=== PATIENT | female | born 1985 | race Caucasian/White ===

== ENCOUNTER 2016-11-29 21:01 | Emergency (ER) | payer OTHER ==
[2016-11-29 21:09] VITALS: BP 140/93; PULSE 86; TEMP 98.3; BMI 27.4
--- NOTE | 2016-11-29 21:29 | PDOC ---
[id number] SHOULDER INJURY Time Seen by Provider: 11/29/16 21:22 Past History - Past Medical History Allergies/Adverse Reactions: Allergies Allergy/AdvReac Type Severity Reaction Status Date / Time No Known Allergies Allergy Verified 11/29/16 21:09 Home Medications: Ambulatory Orders NK [No Known Home Medication] 11/29/16 Other medical history: denies - Psycho/Social/Smoking Cessation Hx Suicidal Ideation: No Smoking History: Never smoked *Physical Exam - Vital Signs Last Vital Signs Temp Pulse Resp BP Pulse Ox 98.3 F 86 18 140/93 99 11/29/16 21:06 11/29/16 21:06 11/29/16 21:06 11/29/16 21:06 11/29/16 21:06 *DC/Admit/Observation/Transfer Diagnosis at time of Disposition: Shoulder strain - Discharge Dispostion Disposition: HOME Condition at time of disposition: Good - Referrals Referrals: Santi Peña MD [Staff Physician] - - Patient Instructions Additional Instructions: apply ice every 2hrs for 20minutes for the next 2 days while awake take motrin 600-800mg every 6hrs for pain as needed use the sling while awake remove to sleep and abthe follow with the orthopedist for follow up next week Return to ER if any worsening symptoms - Post Discharge Activity Work/School Note: Back to Work
[2016-11-29] MEDS ORDERED: IBUPROFEN 600 MG TABLET (FP) PO ONE (21:38)
--- NOTE | 2016-11-29 21:47 | PDOC ---
History of Present Illness - General Chief Complaint: Injury Stated Complaint: SHOULDER INJURY Time Seen by Provider: 11/29/16 21:22 History Source: Patient Exam Limitations: No Limitations - History of Present Illness Initial Comments: 11/29/16 21:38 31 yr female was pulling an obese pt up in bed when she felt pain to her right shoulder. Pt felt "hot then tingling and numbness to arm" Pt did not fall. Pt has no previous injury. denies . Pt states the pain has improved. Occurred: reports: just prior to arrival Severity: reports: moderate Upper Extremity Pain Location: right: shoulder Method of Injury: reports: other (pulling pt up in the bed ) Extremity Pain Location - Extremity Pain Location Extremity Pain Locations: right: other (shoulder) Past History - Past Medical History Allergies/Adverse Reactions: Allergies Allergy/AdvReac Type Severity Reaction Status Date / Time No Known Allergies Allergy Verified 11/29/16 21:09 Home Medications: Ambulatory Orders NK [No Known Home Medication] 11/29/16 Other medical history: denies - Psycho/Social/Smoking Cessation Hx Suicidal Ideation: No Smoking History: Never smoked Review of Systems - Review of Systems Able to Perform ROS?: Yes Is the patient limited [place] proficient: No Constitutional: No: Symptoms Reported HEENTM: No: Symptoms Reported Respiratory: No: Symptoms reported Cardiac (ROS): No: Symptoms Reported ABD/GI: No: Symptoms Reported : No: Symptoms Reported Musculoskeletal: Yes: See HPI *Physical Exam - Vital Signs Last Vital Signs Temp Pulse Resp BP Pulse Ox 98.3 F 86 18 140/93 99 11/29/16 21:06 11/29/16 21:06 11/29/16 21:06 11/29/16 21:06 11/29/16 21:06 - Physical Exam General Appearance: Yes: Nourished, Appropriately Dressed HEENT: positive: EOMI, GEOFF Neck: positive: Supple Respiratory/Chest: positive: Lungs Clear, Normal Breath Sounds Cardiovascular: positive: Regular Rhythm, Regular Rate Gastrointestinal/Abdominal: positive: Normal Bowel Sounds, Soft Musculoskeletal: positive: Normal Inspection Extremity: positive: Normal Capillary Refill, Tender (anterior shoulder nv intact neg bony tenderness pain with abduction) Integumentary: positive: Normal Color, Dry, Warm Neurologic: positive: Fully Oriented, Alert, Normal Mood/Affect, Normal Response , Motor Strength 5/5 Medical Decision Making - Medical Decision Making 11/29/16 21:55 c: right shoulder injury lifting a pt up in bed pulled right shoulder will give ice, motrin and sling *DC/Admit/Observation/Transfer Diagnosis at time of Disposition: Shoulder strain Qualifiers: Encounter type: initial encounter Laterality: right Qualified Code(s): S46.911A - Strain of unspecified muscle, fascia and tendon at shoulder and upper arm level, right arm, initial encounter - Discharge Dispostion Disposition: HOME Condition at time of disposition: Good - Referrals Referrals: Santi Peña MD [Staff Physician] - - Patient Instructions Additional Instructions: apply ice every 2hrs for 20minutes for the next 2 days while awake take motrin 600-800mg every 6hrs for pain as needed use the sling while awake remove to sleep and abthe follow with the orthopedist for follow up next week Return to ER if any worsening symptoms - Post Discharge Activity Work/School Note: Back to Work
[2016-11-29] MEDS ORDERED: IBUPROFEN 400 MG TABLET (FP) PO ONE (21:58)
== END 2016-11-29 22:39 | disposition home or self-care (01) ==
LOC: JERFT 21:01 → JER 21:01 → JERFT 22:39
DX: S46.911A Strain of unspecified muscle, fascia and tendon at shoulder and upper arm level, right arm, initial encounter (principal); X58.XXXA Exposure to other specified factors, initial encounter; Y93.89 Activity, other specified; Y92.239 Unspecified place in hospital as the place of occurrence of the external cause; Y99.0 Civilian activity done for income or pay
CPT/HCPCS: 99281-25

== ENCOUNTER 2017-06-05 22:46 | Emergency (ER) | payer OTHER ==
[2017-06-05 23:03] VITALS: BP 142/86; PULSE 76; TEMP 98.2; BMI 28.3
--- NOTE | 2017-06-05 23:44 | PDOC ---
Post Exposure HPI - General History Source: Patient Exam Limitations: No Limitations - History of Present Illness Initial Comments: 06/05/17 23:41 31-year-old female with no medical history presents to the emergency department complaining of bodily fluid exposure to the left eye. Patient states while she was changing the patient's diaper, the patient passed gas causing fecal matter to hit her left eye. Patient denies any pain. Tetanus is up-to-date. Timing: just prior to arrival <Carly Branham - Last Filed: 06/05/17 23:39> <Edy Waggoner - Last Filed: 06/07/17 07:59> - General Chief Complaint: Blood/Body Fluid Exposure [facility] Stated Complaint: EXPOSURE[facility] Time Seen by Provider: 06/05/17 23:15 Past History - Suicide/Smoking/Psychosocial Hx Smoking History: Never smoked Have you smoked in the past 12 months: No Information on smoking cessation initiated: No Hx Alcohol Use: No Drug/Substance Use Hx: No <Carly Branham - Last Filed: 06/05/17 23:39> <Edy Waggoner - Last Filed: 06/07/17 07:59> - Past Medical History Allergies/Adverse Reactions: Allergies Allergy/AdvReac Type Severity Reaction Status Date / Time No Known Allergies Allergy Verified 06/05/17 22:57 Home Medications: Ambulatory Orders NK [No Known Home Medication] 11/29/16 Review of Systems - Review of Systems Able to Perform ROS?: Yes Comments:: 06/05/17 23:42 CONSTITUTIONAL: Absent: fever, chills, diaphoresis, generalized weakness, malaise, loss of appetite HEENT: Absent: rhinorrhea, nasal congestion, throat pain, throat swelling, difficulty swallowing, mouth swelling, ear pain, eye pain, visual Changes Is the patient limited Citizen [place] proficient: No <Carly Branham - Last Filed: 06/05/17 23:39> *Physical Exam - Vital Signs Last Vital Signs Temp Pulse Resp BP Pulse Ox 98.2 F 76 99 H 142/86 99 06/05/17 22:54 06/05/17 22:54 06/05/17 22:54 06/05/17 22:54 06/05/17 22:54 - Physical Exam Comments: 06/05/17 23:43 GENERAL: Well developed, well nourished. Awake and alert. No acute distress. HEENT: Normocephalic, atraumatic. PERRLA, EOMI. No conjunctival pallor. Sclera are non- icteric. Moist mucous membranes. Oropharynx is clear. <Carly Branham - Last Filed: 06/05/17 23:39> - Vital Signs Last Vital Signs Temp Pulse Resp BP Pulse Ox 98.2 F 76 99 H 142/86 99 06/05/17 22:54 06/05/17 22:54 06/05/17 22:54 06/05/17 22:54 06/05/17 22:54 <Edy Waggoner - Last Filed: 06/07/17 07:59> Progress Note - Progress Note Progress Note: Left eye NS 250cc irrigation <Carly Branham - Last Filed: 06/05/17 23:39> Medical Decision Making - Medical Decision Making 06/07/17 07:59 The patient was seen and evaluated in conjunction with NATHALIA Branham under my direct supervision, ancillary studies were reviewed. case was discussed with and I agree with the plan as outlined by NATHALIA Branham. <Edy Waggoner - Last Filed: 06/07/17 07:59> *DC/Admit/Observation/Transfer - Discharge Dispostion Admit: No <Carly Branham - Last Filed: 06/05/17 23:39> <Edy Waggoner - Last Filed: 06/07/17 07:59> Diagnosis at time of Disposition: Hx of exposure to hazardous bodily fluids - Referrals Referrals: Zabrina Zavala MD [Primary Care Provider] - - Patient Instructions Printed Discharge Instructions: How to Handle Body Fluid Exposure -- Healthcare Worker Additional Instructions: Return to the ER for any concerns - Post Discharge Activity Forms/Work/School Notes: Back to Work
== END 2017-06-05 23:52 | disposition home or self-care (01) ==
LOC: JER 22:46
DX: Z77.21 Contact with and (suspected) exposure to potentially hazardous body fluids (principal)
CPT/HCPCS: 99281-25